=== PATIENT | male | born 1950 | race Caucasian/White ===

== ENCOUNTER 2023-08-04 19:26 | Emergency (ER) | payer OTHER ==
[~2023-08-04] VITALS: Ht 167.6 cm; Wt 80.7 kg
[2023-08-04 20:20] VITALS: BP 131/98; PULSE 65; RESP 18; TEMP 97.4; O2SAT 99
[2023-08-04] MEDS ORDERED: TETRACAINE HCL/PF 0.5% OPTH 4 ML BTL OP ONE (20:50)
[2023-08-04] MEDS ORDERED: FLUORESCEIN OPTH STRIP 1 MG OP ONE (20:50)
[2023-08-04] MEDS ORDERED: CILOS LEFT EYE (21:09)
[2023-08-04 21:14] VITALS: BP 131/98; PULSE 65; RESP 18; TEMP 97.4; O2SAT 99
== END 2023-08-04 21:14 | disposition home or self-care (01) ==
LOC: MED 19:26
DX: S05.02XA Injury of conjunctiva and corneal abrasion without foreign body, left eye, initial encounter (principal); E78.5 Hyperlipidemia, unspecified; Z79.2 Long term (current) use of antibiotics; W22.8XXA Striking against or struck by other objects, initial encounter; Y92.096 Garden or yard of other non-institutional residence as the place of occurrence of the external cause; Y93.89 Activity, other specified; Y99.8 Other external cause status
CPT/HCPCS: 99283